=== PATIENT | male | born 2000 | race Caucasian/White ===

== ENCOUNTER 2025-01-27 22:37 | Emergency (ER) | payer OTHER, SELFPAY ==
[~2025-01-27 22:37] MED LIST: Iopamidol 370 76% 100 ML VIAL ONE
[2025-01-27] MEDS ORDERED: Ketorolac Tromethamine 30 MG (1 mL) VIAL ONE (23:51)
[2025-01-28 00:14] LABS: #Basophils 0.04 10x3/uL (0.0-0.2); #Eosinophils 0.40 10x3/uL (0.0-0.5); #Monocytes 0.82 10x3/uL (0.0-1.1); #Neutrophils 8.22 10x3/uL (1.5-8.4); %Basophils 0.4 % (0.0-2.0); %Eosinophils 3.6 % (0.0-6.0); %Lymphocytes 13.9 % (18.0-47.0); %Monocytes 7.4 % (0.0-10.0); %Neutrophils 74.5 % (40.0-75.0); Hematocrit 42.5 % (38.8-50.0); Hemoglobin 14.8 g/dL (13.5-17.5); Mean Corpuscular Hemoglobin 29.1 pg (27.0-33.0); Mean Corpuscular Volume 83.5 fL (81.2-95.1); Platelet Count 326 10x3/uL (150-450); Red Blood Cell (RBC) Count 5.09 10x6/uL (4.32-5.72); White Blood Cell (WBC) Count 11.04 10x3/uL (3.5-10.5)
[2025-01-28 00:32] LABS: ALT (SGPT) 19 U/L (Less than 45); AST (SGOT) 27 U/L (11-34); Albumin 4.3 g/dL (3.1-4.5); Alkaline Phosphatase 68 U/L (40-110); Anion Gap 15 mmol/L (10-20); BUN (Urea Nitrogen) 10 mg/dL (8.9-20.6); Bilirubin, Total 1.5 mg/dL (0.3-1.2); Calc. Creatinine Clearance 0 mL/min (70-130); Calcium 9.9 mg/dL (7.8-10.44); Carbon Dioxide 24 mmol/L (22-29); Chloride 102 mmol/L (98-107); Globulin 3.5 g/dL (2.4-3.5); Glucose 124 mg/dL (70-105); Potassium 3.3 mmol/L (3.5-5.1); Sodium 138 mmol/L (136-145)
[2025-01-28 00:48] LABS: Mononucleosis NEGATIVE (NEGATIVE)
[2025-01-28 00:49] LABS: MONO NEGATIVE CONTROL ZONE White (Negative) (White); MONO POSITIVE CONTROL Pink Line (Positive) (PINK/RED)
[2025-01-28] MEDS ORDERED: cefTRIAXone (ROCEPHIN) 1 GM VIAL ONE (01:22)
== END 2025-01-28 01:19 | disposition home or self-care (01) ==
LOC: CSHERS 22:37
DX: J03.90 Acute tonsillitis, unspecified (principal); F17.290 Nicotine dependence, other tobacco product, uncomplicated
CPT/HCPCS: 70491; 80053; 83605; 85025; 86140; 86308; 87081; 87430; 93005; 96374; 96375; J0696; J1885; Q9967